=== PATIENT | female | born 1995 | race Caucasian/White ===

== ENCOUNTER 2021-01-09 17:33 | Emergency (ER) | payer MEDICAID, OTHER ==
--- OUTSIDE RECORDS SUMMARY | 2021-01-09 17:38 | XMS REPORT | Continuity of Care Document ---
:1995 Author Organization [facility] Address [address] [place] [address] [address]. [address] [place] [address] Care Team Providers Name Role Phone Unavailable Unavailable Unavailable Problems Condition Condition Condition Status Onset Resolution Last Treating Co mments Source Name Details Category Date Date Treatment Clinician Date Genital Genital Problem Active 0 [facility] herpes Herpes 9 da simplex Simplex 00:00: Medical 00 Group Benign Benign Problem Active 0 [place] essential Essential 9 da hypertensi Hypertensi 00:00: Me dical on on 00 Group complicati Complicati ng ng , , childbirth Childbirth and the and the puerperium Puer[place]ium Pre-eclamp Pre-eclamp Problem Active 2020-0 [facility] cass added cass Added 9- da to to 00:00: Medical pre-existi Pre-existi 00 Gr oup ng ng hypertensi Hypertensi on on History of History of Problem Active 2020-0 [facility] severe Severe 904 da pre-eclamp Pre-eclamp 00:00: Me dical cass cass 00 Group Allergies, Adverse Reactions, Alerts This patient has no known allergies or adverse reactions. Social History Smoking Status Start Date Stop Date Source Former Smoker [facility] Medications Ordered Filled Start Stop Current Ordering Indication Dosage Frequency Signature Comments Components Source Medication Medication Date Date Medication? Clinician (SIG) Name Name betamethaso betamethaso No 12mg betamethas [place] [place] acet,sod ne acet,sod one d a phos (PF) phos (PF) acet,sod M edical in water 6 in water 6 phos (PF) Group mg/mL mg/mL in water 6 injection injection mg/mL suspension suspension injection Take 12 mg Take 12 mg suspension by by Take 12 mg injection injection by route. route. injection route. clonidine clonidine No 1 BID clonidine [facility] HCl 0.1 mg HCl 0.1 mg HCl 0.1 mg da tablet Take tablet Take tablet Medical 1 tablet 1 tablet Take 1 Group twice a day twice a day tablet by oral by oral twice a route. route. day by oral route. iron iron No iron [facility] labetalol labetalol No 1 TID labetalol [facility] 200 mg 200 mg 200 mg da tablet Take tablet Take tablet Medical 1 tablet 3 1 tablet 3 Take 1 G roup times a day times a day tablet 3 by oral by oral times a route. route. day by oral route. nifedipine nifedipine No 1 Q1D nifedipine [facility] ER 90 mg ER 90 mg ER 90 mg da tablet,exte tablet,exte tablet,ext Medical nded nded ended Group release release release Take 1 Take 1 Take 1 tablet tablet tablet every day every day every day by oral by oral by oral route. route. route. Valtrex 500 Valtrex 500 No 1 Q1D Valtrex [facility] mg tablet mg tablet 500 mg da Take 1 Take 1 tablet Medical tablet tablet Take 1 Group every day every day tablet by oral by oral every day route. route. by oral route. Zoloft 100 Zoloft 100 No .5 Q1D Zoloft 100 [facility] mg tablet mg tablet mg tablet da Take 0.5 Take 0.5 Take 0.5 Med ical tablets tablets tablets Group every day every day every day by oral by oral by oral route. route. route. Vital Signs Vital Name Observation Time Observation Value Comments Source BP Diastolic 2020-05-04 00:00:00 84 mm[facility]Hg[facility] Height 2020-05-04 00:00:00 66 [in_i[facility] BMI (Body Mass 2020-05-04 00:00:00 38.1 kg/m2 [facility] senior director of strategy Medical Index) Group BP Systolic 2020-05-04 00:00:00 131 mm[Hg] [facility] Body Weight 2020-05-04 00:00:00 236.3 [lb_av] [facility] BP Diastolic 2020-04-20 00:00:00 115 mm[Hg] [facility] Height 2020-04-20 00:00:00 66 [in_i] [facility] BMI (Body Mass 2020-04-20 00:00:00 41.2 kg/m2 [facility] senior director of strategy Medical Index) Group BP Systolic 2020-04-20 00:00:00 164 mm[Hg] [facility] Body Weight 2020-04-20 00:00:00 255 [lb_av] [facility] BP Diastolic 2020-04-09 00:00:00 110 mm[Hg] [facility] Height 2020-04-09 00:00:00 66 [in_i] [facility] BMI (Body Mass 2020-04-09 00:00:00 40.5 kg/m2 [facility] senior director of strategy [facility] Index) Group BP Systolic 2020-04-09 00:00:00 140 mm[Hg] [facility] Body Weight 2020-04-09 00:00:00 251.1 [lb_av] [facility] BP Diastolic 2020-04-06 00:00:00 113 mm[Hg] [facility] Height 2020-04-06 00:00:00 66 [in_i] [facility] BMI (Body Mass 2020-04-06 00:00:00 39.7 kg/m2 [facility] senior director of [facility]) Group BP Systolic 2020-04-06 00:00:00 156 mm[Hg] [facility] Body Weight 2020-04-06 00:00:00 246.2 [lb_av] [facility] BP Diastolic 2020-03-30 00:00:00 90 mm[Hg] [facility] Height 2020-03-30 00:00:00 66 [in_i] [facility] BMI (Body Mass 2020-03-30 00:00:00 39.6 kg/m2 [facility] senior [facility] of [facility]) Group BP Systolic 2020-03-30 00:00:00 142 mm[Hg] [facility] Body Weight 2020-03-30 00:00:00 245.5 [lb_av] [facility] BP Diastolic 2020-03-26 00:00:00 117 mm[Hg] [facility] Height 2020-03-26 00:00:00 66 [in_i] [facility] BMI (Body Mass 2020-03-26 00:00:00 39.2 kg/m2 [facility]) [facility] BP Systolic 2020-03-26 00:00:00 148 mm[Hg] [facility] Body Weight 2020-03-26 00:00:00 243 [lb_av] [facility] Procedures Procedure Date / Time Performed Performing Clinician Sour e US(FBP)W/0 NON STRESS 2020-04-20 00:00:00 [facility] TEST [facility] non-stress test 2020-04-09 00:00:00 [facility] US(FBP)W/0 NON STRESS 2020-04-06 00:00:00 [facility] US(FBP)W/0 NON STRESS 2020-03-30 00:00:00 [facility] US, obstetric, limited 2020-03-26 00:00:00 [facility] US(FBP)W/0 NON STRESS 2020-03-26 00:00:00 [facility] TEST [facility] Plan of Care Planned Activity Planned Date Details Comments Source Diagnostic Test 2020-05-04 urinalysis, [facility] Pending 00:00:00 dipstick [code = Group urinalysis, dipstick] Encounters Start End Encounter Admission Attending Care Care Encounter Source Date/Time Date/Time Type Type Clinicians Facility Department ID 2020-05-04 2020-05-04 Anthony KHAN [place] - [id number] [facility] 00:00:00 00:00:00 Discovery rachel Montesinos MD: [address] [place] [phone] , Ph. [phone] 2020-04-20 2020-04-20 Anthony KHAN [place] - [id number] [facility] 00:00:00 00:00:00 [facility] rachel Montesinos MD: [address] [place] [phone] , Ph. [phone] 2020-04-09 2020-04-09 Anthony KHAN [place] - [id number] [facility] 00:00:00 00:00:00 [facility] rachel Montesinos MD: [address] [place] [phone] , Ph. [phone] 2020-04-06 2020-04-06 Anthony KHAN [place] - [id number] [facility] 00:00:00 00:00:00 [facility] rachel Montesinos MD: [address] [place] [phone] , Ph. [phone] 2020-03-30 2020-03-30 Anthony KHAN [place] - [id number] [facility] 00:00:00 00:00:00 [facility] rachel Montesinos MD: [address] [place] [phone] , Ph. [phone] 2020-03-26 2020-03-26 Anthony KHAN [place] - [id number] [facility] 00:00:00 00:00:00 [facility] rachel Montesinos MD: [address] [place] [phone] , Ph. [phone] Results Test Description Test Time Test Comments Results Result Comments Source CBC W Auto Differential panel - Blood 2020-04-21 12:00:00 Test Item Value Reference Range Interpretation Comme nts white blood count (test code = white blood count) 15.4 K/uL 4.0- 11.5 red blood count (test code = red blood count) 4.29 M/uL 3.80-5.2 0 hemoglobin (test code = hemoglobin) 12.0 g/dL 10.5-15.7 hematocrit (test code = hematocrit) 36.9 % 34.0-50.0 MCV [Entitic volume] (test code = 45905-7) 86.0 fL 86-100 mean corpuscular hemoglobin (test code = mean corpuscular 28.0 pg 26.2-33.4 hemoglobin) mean corpuscular HGB conc (test code = mean corpuscular HGB 32.5 g/ dL 30-34 conc) red cell distribution width (test code = red cell 13.2 % 12.0 -15.5 distribution width) platelet count (test code = platelet count) 248 K/uL 165-450 mean platelet volume (test code = mean platelet volume) 9.4 fL 9.4-12.6 Segmented neutrophils/100 leukocytes in Blood (test code = 75.2 % 44.4-80.1 79679-2) Immature granulocytes [#/volume] in Blood (test code = 0.1 K/uL 0.0-0.03 H 59508-8) lymphocyte% (test code = lymphocyte%) 15.8 % 10.0-50.0 mono % (test code = mono %) 7.6 % 3.6-12.0 eos % (test code = eos %) 0.7 % 0.0-5.4 Basophils/100 leukocytes in Unspecified specimen (test code 0.3 % 0.1-1.2 = 15923-5) Band form neutrophils [#/volume] in Blood (test code = 11.57 K/uL 1.56-6.13 H 05741-7) Lymphocytes [#/volume] in Unspecified specimen by Automated 2.4 K/u L 1.18-3.74 count (test code = 11270-9) mono # (test code = mono #) 1.17 K/uL 0.24-0.86 H eos # (test code = eos #) 0.10 K/uL 0.04-0.36 basophil # (test code = basophil #) 0.04 K/uL 0.01-0.08 NRBC% (test code = NRBC%) 0 /100 WBC 0-0.2 NRBC# (test code = NRBC#) 0 K/uL [facility] W Auto Differential panel - [id number] 03:25:00 Test Item Value Reference Range Interpretation Comments white blood count (test code = 11.4 K/uL 4.0-11.5 white blood count) red blood count (test code = red 3.95 M/uL 3.80-5.20 blood count) hemoglobin (test code = 11.1 g/dL 10.5-15.7 hemoglobin) hematocrit (test code = 33.8 % 34.0-50.0 L hematocrit) MCV [Entitic volume] (test code = 85.6 fL 86-100 L 99144-4) mean corpuscular hemoglobin (test 28.1 pg 26.2-33.4 code = mean corpuscular hemoglobin) mean corpuscular HGB conc (test 32.8 g/dL 30-34 code = mean corpuscular HGB conc) red cell distribution width (test 13.4 % 12.0-15.5 code = red cell distribution width) platelet count (test code = 227 K/uL 165-450 platelet count) mean platelet volume (test code = 9.4 fL 9.4-12.6 mean platelet volume) Segmented neutrophils/100 76.3 % 44.4-80.1 leukocytes in Blood (test code = 03173-2) Immature granulocytes [#/volume] 0.1 K/uL 0.0-0.03 H in Blood (test code = 08366-9) lymphocyte% (test code = 14.6 % 10.0-50.0 lymphocyte%) mono % (test code = mono %) 7.9 % 3.6-12.0 eos % (test code = eos %) 0.6 % 0.0-5.4 Basophils/100 leukocytes in 0.2 % 0.1-1.2 Unspecified specimen (test code = 62065-3) Band form neutrophils [#/volume] 8.72 K/uL 1.56-6.13 H in Blood (test code = 76985-6) Lymphocytes [#/volume] in 1.7 K/uL 1.18-3.74 Unspecified specimen by Automated count (test code = 47810-7) mono # (test code = mono #) 0.90 K/uL 0.24-0.86 H eos # (test code = eos #) 0.07 K/uL 0.04-0.36 basophil # (test code = basophil 0.02 K/uL 0.01-0.08 #) NRBC% (test code = NRBC%) 0 /100 WBC 0-0.2 NRBC# (test code = NRBC#) 0 K/uL [facility], method unspecified - [id number] 03:25:00NeutrophilsBandLymphocyteAtypical LymphMonocyteEosinophilBasophilPlatelet EstimatePlatelet MorphologyMatagorda Medical GroupBlood type and Indirect antibody screen panel - [id number] 11:42:00 Test Item Value Reference Range Interpretation Comments Rh [Type] in Blood (test code = 4+ 92290-1) ABO and Rh group panel - Blood A positive (test code = 81378-0) [facility] Ag [Presence] in Serum 2020-04-20 11:42:00 Test Item Value Reference Range Interpretation Comments .hepatitis B surface antigen (test negative negative code = .hepatitis B surface antigen) [facility] Ab [Presence] in Serum by [id number] 11:42:00 Test Item Value Reference Range Interpretation Comments Reagin Ab [Presence] in Serum by nonreactive nonreactive RPR (test code = 99014-3) [facility] with Ordered Manual Differential panel - Blood 2020-04-20 10:15:00 Test Item Value Reference Range Interpretation Comments white blood count (test code = 12.6 K/uL 4.0-11.5 H white blood count) red blood count (test code = red 4.27 M/uL 3.80-5.20 blood count) hemoglobin (test code = hemoglobin) 11.8 g/dL 10.5-15.7 hematocrit (test code = hematocrit) 35.9 % 34.0-50.0 MCV [Entitic volume] (test code = 84.1 fL 86-100 L 70520-3) mean corpuscular hemoglobin (test 27.6 pg 26.2-33.4 code = mean corpuscular hemoglobin) mean corpuscular HGB conc (test 32.9 g/dL 30-34 code = mean corpuscular HGB conc) red cell distribution width (test 13.2 % 12.0-15.5 code = red cell distribution width) platelet count (test code = 282 K/uL 165-450 platelet count) mean platelet volume (test code = 9.4 fL 9.4-12.6 mean platelet volume) Neutrophils [#/volume] in Blood by 70 37.0-80.0 Automated count (test code = 751-8) Band form neutrophils/100 0 0-3 leukocytes in Blood by Manual count (test code = 764-1) lymphocyte (test code = lymphocyte) 22 10-50 atypical lymph (test code = 2 H atypical lymph) Monocytes [#/volume] in Blood by 2 0-12 Manual count (test code = 743-5) eosinophil (test code = eosinophil) 3 0-7 Basophils/100 leukocytes in 0 0-3 Unspecified specimen by Manual count (test code = 57848-5) myelocyte (test code = myelocyte) 1 % H differential comment (test code = differential comment) Platelets [#/volume] in Blood by normal normal Automated count (test code = 777-3) Rouleaux [Presence] in Blood by slight H Light microscopy (test code = 7797-4) [facility] Hospital[facility]inal[facility] macro (dipstick) panel - [id number] 09:53:00 Test Item Value Reference Range Interpretation Comments Leukocytes (test code = Negative Leukocytes) Nitrite (test code = Nitrite) negative Urobilinogen (test code = .2 Urobilinogen) Protein (test code = Protein) 30 pH (test code = pH) 7.0 Blood (test code = Blood) Negative Specific [place] (test code = 1.020 Specific [place]) Ketone (test code = Ketone) Negative Bilirubin (test code = Negative Bilirubin) Glucose (test code = Glucose) Negative Appearance (test code = Slightly Cloudy Appearance) Color (test code = Color) Yellow [facility] macro (dipstick) panel - [id number] 09:53:00 Test Item Value Reference Range Interpretation Comments Leukocytes (test code = Negative Leukocytes) Nitrite (test code = Nitrite) negative Urobilinogen (test code = .2 Urobilinogen) Protein (test code = Protein) 30 pH (test code = pH) 7.0 Blood (test code = Blood) Negative Specific [place] (test code = 1.020 Specific [place]) Ketone (test code = Ketone) Negative Bilirubin (test code = Negative Bilirubin) Glucose (test code = Glucose) Negative Appearance (test code = Slightly Cloudy Appearance) Color (test code = Color) Yellow [facility] Biophysical profile panel [id number] 09:41:00 Test Item Value Reference Range Interpretation Comments Amniotic Fluid Index (test code = 2 (16.1) Amniotic Fluid Index) Tone (test code = Tone) 2 Breathing (test code = 2 Breathing) Movement (test code = 2 Movement) Non-Stress Test (test code = 0 Non-Stress Test) [facility] Biophysical profile panel [id number] 09:41:00 Test Item Value Reference Range Interpretation Comments Amniotic Fluid Index (test code = 2 (16.1) Amniotic Fluid Index) Tone (test code = Tone) 2 Breathing (test code = 2 Breathing) Movement (test code = 2 Movement) Non-Stress Test (test code = 0 Non-Stress Test) [facility] [id number] 09:12:00Differential comment-P [facility] HospitalComprehensive metabolic 2000 panel - Serum or Plasma 2020-04-20 09:12:00 Test Item Value Reference Range Interpretation Comments Glucose [Mass/volume] in Serum or 133 mg/dL 74-106 H Plasma (test code = 2345-7) Urea nitrogen [Mass/volume] in 10 mg/dL 6-20 Serum or Plasma (test code = 3094-0) osmolality calculated,serum (test 271 mOsm/kg 280-300 L code = osmolality calculated,serum) creatinine (test code = 0.6 mg/dL 0.50-0.90 creatinine) glomerular filtration rate (test >60.00 code = glomerular filtration rate) Urea nitrogen/Creatinine [Mass 16.7 12-20 Ratio] in Serum or Plasma (test code = 3097-3) sodium level (test code = sodium 135 mmol/L 135-145 level) potassium level (test code = 3.6 mmol/L 3.5-5.2 potassium level) chloride level (test code = 103 mmol/L 98-108 chloride level) CO2 (test code = CO2) 20 mmol/L 21-32 L anion gap (test code = anion gap) 15.6 mEq/L 12-20 calcium level (test code = 8.9 mg/dL 8.6-10.0 calcium level) total protein (test code = total 6.4 g/dL 6.6-8.7 L protein) albumin (test code = albumin) 3.2 g/dL 3.5-5.2 L globulin (test code = globulin) 3.2 gm/dL A/G ratio (test code = A/G ratio) 1.0 >1.0 bilirubin,total (test code = <0.3 0.0-1.2 bilirubin,total) AST/SGOT (test code = AST/SGOT) 12 U/L 15-32 L Alanine aminotransferase 14 U/L 0-33 [Enzymatic activity/volume] in Serum or Plasma (test code = 1742-6) Alkaline phosphatase [Enzymatic 99 U/L 35-105 activity/volume] in Serum or Plasma (test code = 6768-6) [facility] GroupUrate [Mass/volume] in [id number] 09:12:00 Test Item Value Reference Range Interpretation Comments uric acid (test code = uric acid) 4.9 mg/dL 2.4-5.7 [facility] HospitalD-Lactate [Moles/volume] in Serum or [id number] 09:12:00 Test Item Value Reference Range Interpretation Comments LDH (test code = LDH) 155 U/L 135-214 [facility] HospitalUrinalysis complete panel - [id number] 10:05:00 Test Item Value Reference Range Interpretation Comments Color of Urine by Auto (test code yellow = 97481-5) Appearance of Urine (test code = clear clear 5767-9) Glucose [Mass/volume] in Urine negative negative (test code = 2350-7) bilirubin, urine (test code = negative negative bilirubin, urine) ketone, urine (test code = trace negative H ketone, urine) Specific gravity of Urine by 1.025 1.003-1.030 Automated test strip (test code = 85969-0) Hemoglobin [Presence] in Urine by negative negative Test strip (test code = 5794-3) pH of Urine (test code = 2756-5) 6.500 5-9 protein urine (UA) (test code = =2+ (100 negative H protein urine (UA)) Urobilinogen [Presence] in Urine 1.0 E.U./dL 0.2-1.0 (test code = 66766-8) Nitrite [Presence] in Urine by negative negative Test strip (test code = 5802-4) urine leukocyte esterase (test trace negative H code = urine leukocyte esterase) Erythrocytes [Presence] in Urine =0-3 0-5 (test code = 95762-4) WBC, urine (test code = WBC, =0-2 0-5 urine) Epithelial cells [Presence] in =11-25 0-5 H Urine sediment by Light microscopy (test code = 01038-4) bacteria, urine (test code = small (1 none detect H bacteria, urine) urine culture added? (test code = yes urine culture added?) [facility] complete panel - [id number] 10:05:00 Test Item Value Reference Range Interpretation Comments Color of Urine by Auto (test code yellow = 62704-1) Appearance of Urine (test code = clear clear 5767-9) Glucose [Mass/volume] in Urine negative negative (test code = 2350-7) bilirubin, urine (test code = negative negative bilirubin, urine) ketone, urine (test code = trace negative H ketone, urine) Specific gravity of Urine by 1.025 1.003-1.030 Automated test strip (test code = 12226-0) Hemoglobin [Presence] in Urine by negative negative Test strip (test code = 5794-3) pH of Urine (test code = 2756-5) 6.500 5-9 protein urine (UA) (test code = =2+ (100 negative H protein urine (UA)) Urobilinogen [Presence] in Urine 1.0 E.U./dL 0.2-1.0 (test code = 24865-4) Nitrite [Presence] in Urine by negative negative Test strip (test code = 5802-4) urine leukocyte esterase (test trace negative H code = urine leukocyte esterase) Erythrocytes [Presence] in Urine =0-3 0-5 (test code = 41055-0) WBC, urine (test code = WBC, =0-2 0-5 urine) Epithelial cells [Presence] in =11-25 0-5 H Urine sediment by Light microscopy (test code = 08605-6) bacteria, urine (test code = small (1 none detect H bacteria, urine) urine culture added? (test code = yes urine culture added?) [facility] HospitalBacteria identified in Urine by [id number] 10:05:00Bacteria Ur [facility] in 24 hour Urine and Serum or [id number] 07:55:00 Test Item Value Reference Range Interpretation Comments creatinine (test code = 0.6 mg/dL 0.50-0.90 creatinine) urine collection time (test 24 hours code = urine collection time) Volume of Urine (test code = 2750 mL/24 [place] 04295-6) creatinine, urine random (test 34.9 mg/dL 217 code = creatinine, urine random) Creatinine renal clearance in 111.1 mL/min 88-128 Urine and Serum or Plasma collected for unspecified duration (test code = 65333-9) [facility] [Mass/time] in 24 hour [id number] 07:55:00 Test Item Value Reference Range Interpretation Comments urine total protein (test code = 10.7 mg/dL urine total protein) total protein 24 hour urine 294.2 mg/day <149.1 (test code = total protein 24 hour urine) [facility] renal clearance in 24 hour Urine and Serum or [id number] 07:55:00 Test Item Value Reference Range Interpretation Comments creatinine (test code = 0.6 mg/dL 0.50-0.90 creatinine) urine collection time (test 24 hours code = urine collection time) Volume of Urine (test code = 2750 mL/24 [place] 37028-3) creatinine, urine random (test 34.9 mg/dL 217 code = creatinine, urine random) Creatinine renal clearance in 111.1 mL/min 88-128 Urine and Serum or Plasma collected for unspecified duration (test code = 36022-1) [facility] [Mass/time] in 24 hour [id number] 07:55:00 Test Item Value Reference Range Interpretation Comments urine total protein (test code = 10.7 mg/dL urine total protein) total protein 24 hour urine 294.2 mg/day <149.1 (test code = total protein 24 hour urine) [facility] W Auto Differential panel - [id number] 08:08:00 Test Item Value Reference Range Interpretation Comments white blood count (test code = 10.4 K/uL 4.0-11.5 white blood count) red blood count (test code = red 4.23 M/uL 3.80-5.20 blood count) hemoglobin (test code = 11.8 g/dL 10.5-15.7 hemoglobin) hematocrit (test code = 35.6 % 34.0-50.0 hematocrit) MCV [Entitic volume] (test code = 84.2 fL 86-100 L 73747-9) mean corpuscular hemoglobin (test 27.9 pg 26.2-33.4 code = mean corpuscular hemoglobin) mean corpuscular HGB conc (test 33.1 g/dL 30-34 code = mean corpuscular HGB conc) red cell distribution width (test 12.6 % 12.0-15.5 code = red cell distribution width) platelet count (test code = 258 K/uL 165-450 platelet count) mean platelet volume (test code = 9.8 fL 9.4-12.6 mean platelet volume) Segmented neutrophils/100 72.1 % 44.4-80.1 leukocytes in Blood (test code = 74983-6) Immature granulocytes [#/volume] 0.1 K/uL 0.0-0.03 H in Blood (test code = 05588-5) lymphocyte% (test code = 20.1 % 10.0-50.0 lymphocyte%) mono % (test code = mono %) 5.8 % 3.6-12.0 eos % (test code = eos %) 1.0 % 0.0-5.4 Basophils/100 leukocytes in 0.3 % 0.1-1.2 Unspecified specimen (test code = 19638-6) Band form neutrophils [#/volume] 7.51 K/uL 1.56-6.13 H in Blood (test code = 65772-2) Lymphocytes [#/volume] in 2.1 K/uL 1.18-3.74 Unspecified specimen by Automated count (test code = 50539-1) mono # (test code = mono #) 0.60 K/uL 0.24-0.86 eos # (test code = eos #) 0.10 K/uL 0.04-0.36 basophil # (test code = basophil 0.03 K/uL 0.01-0.08 #) NRBC% (test code = NRBC%) 0 /100 WBC 0-0.2 NRBC# (test code = NRBC#) 0 K/uL [facility] GroupUrinalysis complete panel - [id number] 08:08:00 Test Item Value Reference Range Interpretation Comments Color of Urine by Auto (test light yellow code = 46090-5) Appearance of Urine (test code = clear clear 5767-9) Glucose [Presence] in Urine by negative negative Automated test strip (test code = 14857-4) Bilirubin.total [Mass/volume] in negative negative Urine (test code = 1978-6) Ketones [Mass/volume] in Urine negative negative by Automated test strip (test code = 42357-9) Specific gravity of Urine by 1.018 1.003-1.030 Automated test strip (test code = 35172-6) blood urine (test code = blood negative negative urine) pH of Urine (test code = 2756-5) 7.000 5-9 protein urine (UA) (test code = =1+ (50 negative H protein urine (UA)) Urobilinogen [Presence] in Urine normal 0.2-1.0 (test code = 22810-8) Nitrite [Presence] in Urine by negative negative Test strip (test code = 5802-4) Leukocyte esterase [Presence] in negative negative Urine by Automated test strip (test code = 36261-2) Erythrocytes [#/volume] in Urine =6-10 0-5 H by Automated count (test code = 798-9) Leukocytes [#/area] in Urine =6-10 0-5 H sediment by Automated count (test code = 51676-4) Epithelial cells [Presence] in =6-10 0-5 Urine sediment by Light microscopy (test code = 16427-7) Bacteria identified in Urine by trace none detect Culture (test code = 630-4) Casts [#/area] in Urine sediment =2-5 none detect by Automated count (test code = 18383-4) urine culture added? (test code no = urine culture added?) [facility] - [facility] or Plasma 2020-04-10 08:08:00 Test Item Value Reference Range Interpretation Comments Glucose [Mass/volume] in Serum or 94 mg/dL 74-106 Plasma (test code = 2345-7) Urea nitrogen [Mass/volume] in 10 mg/dL 6-20 Serum or Plasma (test code = 3094-0) osmolality calculated,serum (test 271 mOsm/kg 280-300 L code = osmolality calculated,serum) creatinine (test code = 0.6 mg/dL 0.50-0.90 creatinine) glomerular filtration rate (test >60.00 code = glomerular filtration rate) Urea nitrogen/Creatinine [Mass 16.7 12-20 Ratio] in Serum or Plasma (test code = 3097-3) sodium level (test code = sodium 136 mmol/L 135-145 level) potassium level (test code = 3.6 mmol/L 3.5-5.2 potassium level) chloride level (test code = 104 mmol/L 98-108 chloride level) CO2 (test code = CO2) 20 mmol/L 21-32 L anion gap (test code = anion gap) 15.6 mEq/L 12-20 calcium level (test code = 9.0 mg/dL 8.6-10.0 calcium level) total protein (test code = total 6.4 g/dL 6.6-8.7 L protein) albumin (test code = albumin) 3.2 g/dL 3.5-5.2 L globulin (test code = globulin) 3.2 gm/dL A/G ratio (test code = A/G ratio) 1.0 >1.0 bilirubin,total (test code = <0.3 0.0-1.2 bilirubin,total) AST/SGOT (test code = AST/SGOT) 12 U/L 15-32 L Alanine aminotransferase 17 U/L 0-33 [Enzymatic activity/volume] in Serum or Plasma (test code = 1742-6) Alkaline phosphatase [Enzymatic 92 U/L 35-105 activity/volume] in Serum or Plasma (test code = 6768-6) [facility]] in Serum or [id number] 08:08:00 Test Item Value Reference Range Interpretation Comments uric acid (test code = uric acid) 4.5 mg/dL 2.4-5.7 [facility]-Lactate [Moles/volume] in Serum or [id number] 08:08:00 Test Item Value Reference Range Interpretation Comments LDH (test code = LDH) 138 U/L 135-214 [facility] W Auto Differential panel - [id number] 08:08:00 Test Item Value Reference Range Interpretation Comments white blood count (test code = 10.4 K/uL 4.0-11.5 white blood count) red blood count (test code = red 4.23 M/uL 3.80-5.20 blood count) hemoglobin (test code = 11.8 g/dL 10.5-15.7 hemoglobin) hematocrit (test code = 35.6 % 34.0-50.0 hematocrit) MCV [Entitic volume] (test code = 84.2 fL 86-100 L 98491-0) mean corpuscular hemoglobin (test 27.9 pg 26.2-33.4 code = mean corpuscular hemoglobin) mean corpuscular HGB conc (test 33.1 g/dL 30-34 code = mean corpuscular HGB conc) red cell distribution width (test 12.6 % 12.0-15.5 code = red cell distribution width) platelet count (test code = 258 K/uL 165-450 platelet count) mean platelet volume (test code = 9.8 fL 9.4-12.6 mean platelet volume) Segmented neutrophils/100 72.1 % 44.4-80.1 leukocytes in Blood (test code = 64376-1) Immature granulocytes [#/volume] 0.1 K/uL 0.0-0.03 H in Blood (test code = 14047-9) lymphocyte% (test code = 20.1 % 10.0-50.0 lymphocyte%) mono % (test code = mono %) 5.8 % 3.6-12.0 eos % (test code = eos %) 1.0 % 0.0-5.4 Basophils/100 leukocytes in 0.3 % 0.1-1.2 Unspecified specimen (test code = 51642-7) Band form neutrophils [#/volume] 7.51 K/uL 1.56-6.13 H in Blood (test code = 35320-6) Lymphocytes [#/volume] in 2.1 K/uL 1.18-3.74 Unspecified specimen by Automated count (test code = 11486-5) mono # (test code = mono #) 0.60 K/uL 0.24-0.86 eos # (test code = eos #) 0.10 K/uL 0.04-0.36 basophil # (test code = basophil 0.03 K/uL 0.01-0.08 #) NRBC% (test code = NRBC%) 0 /100 WBC 0-0.2 NRBC# (test code = NRBC#) 0 K/uL [facility] Group[facility] complete panel - [id number] 08:08:00 Test Item Value Reference Range Interpretation Comments Color of Urine by Auto (test light yellow code = 74556-9) Appearance of Urine (test code = clear clear 5767-9) Glucose [Presence] in Urine by negative negative Automated test strip (test code = 22768-1) Bilirubin.total [Mass/volume] in negative negative Urine (test code = 1978-6) Ketones [Mass/volume] in Urine negative negative by Automated test strip (test code = 40020-8) Specific gravity of Urine by 1.018 1.003-1.030 Automated test strip (test code = 36356-5) blood urine (test code = blood negative negative urine) pH of Urine (test code = 2756-5) 7.000 5-9 protein urine (UA) (test code = =1+ (50 negative H protein urine (UA)) Urobilinogen [Presence] in Urine normal 0.2-1.0 (test code = 28277-5) Nitrite [Presence] in Urine by negative negative Test strip (test code = 5802-4) Leukocyte esterase [Presence] in negative negative Urine by Automated test strip (test code = 80223-8) Erythrocytes [#/volume] in Urine =6-10 0-5 H by Automated count (test code = 798-9) Leukocytes [#/area] in Urine =6-10 0-5 H sediment by Automated count (test code = 81753-9) Epithelial cells [Presence] in =6-10 0-5 Urine sediment by Light microscopy (test code = 39118-0) Bacteria identified in Urine by trace none detect Culture (test code = 630-4) Casts [#/area] in Urine sediment =2-5 none detect by Automated count (test code = 84426-3) urine culture added? (test code no = urine culture added?) [facility] - Serum or Plasma 2020-04-10 08:08:00 Test Item Value Reference Range Interpretation Comments Glucose [Mass/volume] in Serum or 94 mg/dL 74-106 Plasma (test code = 2345-7) Urea nitrogen [Mass/volume] in 10 mg/dL 6-20 Serum or Plasma (test code = 3094-0) osmolality calculated,serum (test 271 mOsm/kg 280-300 L code = osmolality calculated,serum) creatinine (test code = 0.6 mg/dL 0.50-0.90 creatinine) glomerular filtration rate (test >60.00 code = glomerular filtration rate) Urea nitrogen/Creatinine [Mass 16.7 12-20 Ratio] in Serum or Plasma (test code = 3097-3) sodium level (test code = sodium 136 mmol/L 135-145 level) potassium level (test code = 3.6 mmol/L 3.5-5.2 potassium level) chloride level (test code = 104 mmol/L 98-108 chloride level) CO2 (test code = CO2) 20 mmol/L 21-32 L anion gap (test code = anion gap) 15.6 mEq/L 12-20 calcium level (test code = 9.0 mg/dL 8.6-10.0 calcium level) total protein (test code = total 6.4 g/dL 6.6-8.7 L protein) albumin (test code = albumin) 3.2 g/dL 3.5-5.2 L globulin (test code = globulin) 3.2 gm/dL A/G ratio (test code = A/G ratio) 1.0 >1.0 bilirubin,total (test code = <0.3 0.0-1.2 bilirubin,total) AST/SGOT (test code = AST/SGOT) 12 U/L 15-32 L Alanine aminotransferase 17 U/L 0-33 [Enzymatic activity/volume] in Serum or Plasma (test code = 1742-6) Alkaline phosphatase [Enzymatic 92 U/L 35-105 activity/volume] in Serum or Plasma (test code = 6768-6) [facility] [Mass/volume] in Serum or [id number] 08:08:00 Test Item Value Reference Range Interpretation Comments uric acid (test code = uric acid) 4.5 mg/dL 2.4-5.7 [facility] [Moles/volume] in Serum or [id number] 08:08:00 Test Item Value Reference Range Interpretation Comments LDH (test code = LDH) 138 U/L 135-214 [facility]/rectal, streptococcus group [id number] 00:00:00 Test Item Value Reference Range Interpretation Comments group B strep (test code = group B normal strep) [facility]/rectal, streptococcus group [id number] 00:00:00 Test Item Value Reference Range Interpretation Comments group B strep (test code = group B normal strep) [facility] [id number] 09:57:00 Test Item Value Reference Range Interpretation Comments Reactive (test code = Reactive) Yes Contractions (test code = Contractions) No [facility] [id number] 09:57:00 Test Item Value Reference Range Interpretation Comments Reactive (test code = Reactive) Yes Contractions (test code = Contractions) No [facility] HospitalUrinalysis macro (dipstick) panel - [id number] 08:52:18 Test Item Value Reference Range Interpretation Comments Leukocytes (test code = Trace Leukocytes) Nitrite (test code = Nitrite) negative Urobilinogen (test code = .2 Urobilinogen) Protein (test code = Protein) 100 pH (test code = pH) 7.0 Blood (test code = Blood) Negative Specific [place] (test code = 1.020 Specific [place]) Ketone (test code = Ketone) Negative Bilirubin (test code = Bilirubin) Negative Glucose (test code = Glucose) Negative Appearance (test code = Clear Appearance) Color (test code = Color) Dark Yellow [facility] GroupUrinalysis macro (dipstick) panel - [id number] 08:52:18 Test Item Value Reference Range Interpretation Comments Leukocytes (test code = Trace Leukocytes) Nitrite (test code = Nitrite) negative Urobilinogen (test code = .2 Urobilinogen) Protein (test code = Protein) 100 pH (test code = pH) 7.0 Blood (test code = Blood) Negative Specific [place] (test code = 1.020 Specific [place]) Ketone (test code = Ketone) Negative Bilirubin (test code = Bilirubin) Negative Glucose (test code = Glucose) Negative Appearance (test code = Clear Appearance) Color (test code = Color) Dark Yellow [facility] Group[facility] macro (dipstick) panel - [id number] 08:52:18 Test Item Value Reference Range Interpretation Comments Leukocytes (test code = Trace Leukocytes) Nitrite (test code = Nitrite) negative Urobilinogen (test code = .2 Urobilinogen) Protein (test code = Protein) 100 pH (test code = pH) 7.0 Blood (test code = Blood) Negative Specific [place] (test code = 1.020 Specific [place]) Ketone (test code = Ketone) Negative Bilirubin (test code = Bilirubin) Negative Glucose (test code = Glucose) Negative Appearance (test code = Clear Appearance) Color (test code = Color) Dark Yellow [facility] (dipstick) panel - [id number] 08:58:01 Test Item Value Reference Range Interpretation Comments Leukocytes (test code = Leukocytes) Negative Nitrite (test code = Nitrite) negative Urobilinogen (test code = .2 Urobilinogen) Protein (test code = Protein) Negative pH (test code = pH) 7.0 Blood (test code = Blood) Negative Specific [place] (test code = 1.020 Specific [place]) Ketone (test code = Ketone) Negative Bilirubin (test code = Bilirubin) Negative Glucose (test code = Glucose) Negative Appearance (test code = Appearance) Clear Color (test code = Color) Yellow [facility] (dipstick) panel - [id number] 08:58:01 Test Item Value Reference Range Interpretation Comments Leukocytes (test code = Leukocytes) Negative Nitrite (test code = Nitrite) negative Urobilinogen (test code = .2 Urobilinogen) Protein (test code = Protein) Negative pH (test code = pH) 7.0 Blood (test code = Blood) Negative Specific [place] (test code = 1.020 Specific [place]) Ketone (test code = Ketone) Negative Bilirubin (test code = Bilirubin) Negative Glucose (test code = Glucose) Negative Appearance (test code = Appearance) Clear Color (test code = Color) Yellow [facility] (dipstick) panel - [id number] 08:58:01 Test Item Value Reference Range Interpretation Comments Leukocytes (test code = Leukocytes) Negative Nitrite (test code = Nitrite) negative Urobilinogen (test code = .2 Urobilinogen) Protein (test code = Protein) Negative pH (test code = pH) 7.0 Blood (test code = Blood) Negative Specific [place] (test code = 1.020 Specific [place]) Ketone (test code = Ketone) Negative Bilirubin (test code = Bilirubin) Negative Glucose (test code = Glucose) Negative Appearance (test code = Appearance) Clear Color (test code = Color) Yellow [facility] (dipstick) panel - [id number] 08:58:01 Test Item Value Reference Range Interpretation Comments Leukocytes (test code = Leukocytes) Negative Nitrite (test code = Nitrite) negative Urobilinogen (test code = .2 Urobilinogen) Protein (test code = Protein) Negative pH (test code = pH) 7.0 Blood (test code = Blood) Negative Specific [place] (test code = 1.020 Specific [place]) Ketone (test code = Ketone) Negative Bilirubin (test code = Bilirubin) Negative Glucose (test code = Glucose) Negative Appearance (test code = Appearance) Clear Color (test code = Color) Yellow [facility] Biophysical profile panel [id number] 08:45:37 Test Item Value Reference Range Interpretation Comments Amniotic Fluid Index (test code = 2 (17.5) Amniotic Fluid Index) Tone (test code = Tone) 2 Breathing (test code = 2 Breathing) Movement (test code = 2 Movement) Non-Stress Test (test code = 2 Non-Stress Test) [facility] Biophysical profile panel [id number] 08:45:37 Test Item Value Reference Range Interpretation Comments Amniotic Fluid Index (test code = 2 (17.5) Amniotic Fluid Index) Tone (test code = Tone) 2 Breathing (test code = 2 Breathing) Movement (test code = 2 Movement) Non-Stress Test (test code = 2 Non-Stress Test) [facility] Biophysical profile panel [id number] 08:45:37 Test Item Value Reference Range Interpretation Comments Amniotic Fluid Index (test code = 2 (17.5) Amniotic Fluid Index) Tone (test code = Tone) 2 Breathing (test code = 2 Breathing) Movement (test code = 2 Movement) Non-Stress Test (test code = 2 Non-Stress Test) [facility] Biophysical profile panel [id number] 08:45:37 Test Item Value Reference Range Interpretation Comments Amniotic Fluid Index (test code = 2 (17.5) Amniotic Fluid Index) Tone (test code = Tone) 2 Breathing (test code = 2 Breathing) Movement (test code = 2 Movement) Non-Stress Test (test code = 2 Non-Stress Test) [facility] (dipstick) panel - [id number] 09:18:53 Test Item Value Reference Range Interpretation Comments Leukocytes (test code = Leukocytes) Negative Nitrite (test code = Nitrite) negative Urobilinogen (test code = .2 Urobilinogen) Protein (test code = Protein) Negative pH (test code = pH) 7.0 Blood (test code = Blood) Negative Specific [place] (test code = 1.020 Specific [place]) Ketone (test code = Ketone) Negative Bilirubin (test code = Bilirubin) Negative Glucose (test code = Glucose) Negative Appearance (test code = Appearance) Clear Color (test code = Color) Yellow [facility] (dipstick) panel - [id number] 09:18:53 Test Item Value Reference Range Interpretation Comments Leukocytes (test code = Leukocytes) Negative Nitrite (test code = Nitrite) negative Urobilinogen (test code = .2 Urobilinogen) Protein (test code = Protein) Negative pH (test code = pH) 7.0 Blood (test code = Blood) Negative Specific [place] (test code = 1.020 Specific [place]) Ketone (test code = Ketone) Negative Bilirubin (test code = Bilirubin) Negative Glucose (test code = Glucose) Negative Appearance (test code = Appearance) Clear Color (test code = Color) Yellow [facility] (dipstick) panel - [id number] 09:18:53 Test Item Value Reference Range Interpretation Comments Leukocytes (test code = Leukocytes) Negative Nitrite (test code = Nitrite) negative Urobilinogen (test code = .2 Urobilinogen) Protein (test code = Protein) Negative pH (test code = pH) 7.0 Blood (test code = Blood) Negative Specific [place] (test code = 1.020 Specific [place]) Ketone (test code = Ketone) Negative Bilirubin (test code = Bilirubin) Negative Glucose (test code = Glucose) Negative Appearance (test code = Appearance) Clear Color (test code = Color) Yellow [facility] (dipstick) panel - [id number] 09:18:53 Test Item Value Reference Range Interpretation Comments Leukocytes (test code = Leukocytes) Negative Nitrite (test code = Nitrite) negative Urobilinogen (test code = .2 Urobilinogen) Protein (test code = Protein) Negative pH (test code = pH) 7.0 Blood (test code = Blood) Negative Specific [place] (test code = 1.020 Specific [place]) Ketone (test code = Ketone) Negative Bilirubin (test code = Bilirubin) Negative Glucose (test code = Glucose) Negative Appearance (test code = Appearance) Clear Color (test code = Color) Yellow [facility] Biophysical profile panel [id number] 09:08:40 Test Item Value Reference Range Interpretation Comments Amniotic Fluid Index (test code = 2 (18.0) Amniotic Fluid Index) Tone (test code = Tone) 2 Breathing (test code = 2 Breathing) Movement (test code = 2 Movement) Non-Stress Test (test code = 2 Non-Stress Test) [facility] Biophysical profile panel [id number] 09:08:40 Test Item Value Reference Range Interpretation Comments Amniotic Fluid Index (test code = 2 (18.0) Amniotic Fluid Index) Tone (test code = Tone) 2 Breathing (test code = 2 Breathing) Movement (test code = 2 Movement) Non-Stress Test (test code = 2 Non-Stress Test) [facility] Biophysical profile panel [id number] 09:08:40 Test Item Value Reference Range Interpretation Comments Amniotic Fluid Index (test code = 2 (18.0) Amniotic Fluid Index) Tone (test code = Tone) 2 Breathing (test code = 2 Breathing) Movement (test code = 2 Movement) Non-Stress Test (test code = 2 Non-Stress Test) [facility] Biophysical profile panel [id number] 09:08:40 Test Item Value Reference Range Interpretation Comments Amniotic Fluid Index (test code = 2 (18.0) Amniotic Fluid Index) Tone (test code = Tone) 2 Breathing (test code = 2 Breathing) Movement (test code = 2 Movement) Non-Stress Test (test code = 2 Non-Stress Test) [facility]Creat[facility] clearance in 24 hour Urine and Serum or [id number] 09:43:00 Test Item Value Reference Range Interpretation Comments creatinine (test code = 0.7 mg/dL 0.50-0.90 creatinine) urine collection time (test code 24 hours = urine collection time) Volume of Urine (test code = 800 mL/24 [place] [address]-9) creatinine, urine random (test 90.5 mg/dL 28-217 code = creatinine, urine random) Creatinine renal clearance in 71.8 mL/min 88-128 L Urine and Serum or Plasma collected for unspecified duration (test code = 87424-3) [facility]Protein [Mass/time] in 24 hour [id number] 09:43:00 Test Item Value Reference Range Interpretation Comments urine total protein (test code = 19.4 mg/dL urine total protein) total protein 24 hour urine 155.2 mg/day <149.1 (test code = total protein 24 hour urine) [facility] GroupCreatinine renal clearance in 24 hour Urine and Serum or [id number] 09:43:00 Test Item Value Reference Range Interpretation Comments creatinine (test code = 0.7 mg/dL 0.50-0.90 creatinine) urine collection time (test code 24 hours = urine collection time) Volume of Urine (test code = 800 mL/24 [place] [address]-8) creatinine, urine random (test 90.5 mg/dL 28-217 code = creatinine, urine random) Creatinine renal clearance in 71.8 mL/min 88-128 L Urine and Serum or Plasma collected for unspecified duration (test code = 05728-5) [facility]Protein [Mass/time] in 24 hour [id number] 09:43:00 Test Item Value Reference Range Interpretation Comments urine total protein (test code = 19.4 mg/dL urine total protein) total protein 24 hour urine 155.2 mg/day <149.1 (test code = total protein 24 hour urine) [facility]Protein [Mass/time] in 24 hour [id number] 09:43:00 Test Item Value Reference Range Interpretation Comments urine total protein (test code = 19.4 mg/dL urine total protein) total protein 24 hour urine 155.2 mg/day <149.1 (test code = total protein 24 hour urine) [facility] GroupCreatinine renal clearance in 24 hour Urine and Serum or [id number] 09:43:00 Test Item Value Reference Range Interpretation Comments creatinine (test code = 0.7 mg/dL 0.50-0.90 creatinine) urine collection time (test code 24 hours = urine collection time) Volume of Urine (test code = 800 mL/24 [place] [address]-2) creatinine, urine random (test 90.5 mg/dL 28217 code = creatinine, urine random) Creatinine renal clearance in 71.8 mL/min 88-128 L Urine and Serum or Plasma collected for unspecified duration (test code = 02154-2) [facility]Protein [Mass/time] in 24 hour [id number] 09:43:00 Test Item Value Reference Range Interpretation Comments urine total protein (test code = 19.4 mg/dL urine total protein) total protein 24 hour urine 155.2 mg/day <149.1 (test code = total protein 24 hour urine) [facility]HIV 1+2 Ab [Presence] in [id number] 08:18:00HIV P24 AgHIV-1/2 [facility]Reagin Ab [Presence] in Serum by RPR 2020-03-27 08:18:00 Test Item Value Reference Range Interpretation Comments Reagin Ab [Presence] in Serum by nonreactive nonreactive RPR (test code = 48300-9) [facility] HospitalRubella virus IgM Ab [Units/volume] in [id number] 08:18:00 Test Item Value Reference Range Interpretation Comments Rubella virus IgM Ab [Units/volume] in <20.0 0.0-19.9 Serum (test code = 8015-0) [facility] HospitalHepatitis B virus surface Ag [Presence] in Serum 2020-03-27 08:18:00 Test Item Value Reference Range Interpretation Comments .hepatitis B surface antigen (test negative negative code = .hepatitis B surface antigen) [facility]Com[facility] 2000 panel - Serum or Plasma 2020-03-27 08:18:00 Test Item Value Reference Range Interpretation Comments Glucose [Mass/volume] in Serum or 124 mg/dL 74-106 H Plasma (test code = 2345-7) Urea nitrogen [Mass/volume] in 10 mg/dL 6-20 Serum or Plasma (test code = 3094-0) osmolality calculated,serum (test 271 mOsm/kg 280-300 L code = osmolality calculated,serum) creatinine (test code = 0.7 mg/dL 0.50-0.90 creatinine) glomerular filtration rate (test >60.00 code = glomerular filtration rate) Urea nitrogen/Creatinine [Mass 14.3 12-20 Ratio] in Serum or Plasma (test code = 3097-3) sodium level (test code = sodium 135 mmol/L 135-145 level) potassium level (test code = 3.3 mmol/L 3.5-5.2 L potassium level) chloride level (test code = 104 mmol/L 98-108 chloride level) CO2 (test code = CO2) 18 mmol/L 21-32 L anion gap (test code = anion gap) 16.3 mEq/L 12-20 calcium level (test code = 8.9 mg/dL 8.6-10.0 calcium level) total protein (test code = total 6.6 g/dL 6.6-8.7 protein) albumin (test code = albumin) 3.3 g/dL 3.5-5.2 L globulin (test code = globulin) 3.3 gm/dL A/G ratio (test code = A/G ratio) 1.0 >1.0 bilirubin,total (test code = <0.3 0.0-1.2 bilirubin,total) AST/SGOT (test code = AST/SGOT) 12 U/L 15-32 L Alanine aminotransferase 13 U/L 0-33 [Enzymatic activity/volume] in Serum or Plasma (test code = 1742-6) Alkaline phosphatase [Enzymatic 91 U/L 35-105 activity/volume] in Serum or Plasma (test code = 6768-6) [facility] HospitalUrate [Mass/volume] in [id number] 08:18:00 Test Item Value Reference Range Interpretation Comments uric acid (test code = uric acid) 4.4 mg/dL 2.4-5.7 [facility]D-Lactate [Moles/volume] in Serum or [id number] 08:18:00 Test Item Value Reference Range Interpretation Comments LDH (test code = LDH) 148 U/L 135-214 [facility] W Auto Differential panel - [id number] 08:18:00 Test Item Value Reference Range Interpretation Comments white blood count (test code = 12.9 K/uL 4.0-11.5 H white blood count) red blood count (test code = red 4.10 M/uL 3.80-5.20 blood count) hemoglobin (test code = 11.6 g/dL 10.5-15.7 hemoglobin) hematocrit (test code = 35.1 % 34.0-50.0 hematocrit) MCV [Entitic volume] (test code = 85.6 fL 86-100 L 64016-4) mean corpuscular hemoglobin (test 28.3 pg 26.2-33.4 code = mean corpuscular hemoglobin) mean corpuscular HGB conc (test 33.0 g/dL 30-34 code = mean corpuscular HGB conc) red cell distribution width (test 12.3 % 12.0-15.5 code = red cell distribution width) platelet count (test code = 272 K/uL 165-450 platelet count) mean platelet volume (test code = 9.3 fL 9.4-12.6 L mean platelet volume) Segmented neutrophils/100 73.6 % 44.4-80.1 leukocytes in Blood (test code = 61663-7) Immature granulocytes [#/volume] 0.1 K/uL 0.0-0.03 H in Blood (test code = 98571-3) lymphocyte% (test code = 18.0 % 10.0-50.0 lymphocyte%) mono % (test code = mono %) 7.0 % 3.6-12.0 eos % (test code = eos %) 0.5 % 0.0-5.4 Basophils/100 leukocytes in 0.2 % 0.1-1.2 Unspecified specimen (test code = 12052-6) Band form neutrophils [#/volume] 9.48 K/uL 1.56-6.13 H in Blood (test code = 21592-8) Lymphocytes [#/volume] in 2.3 K/uL 1.18-3.74 Unspecified specimen by Automated count (test code = 03582-0) mono # (test code = mono #) 0.90 K/uL 0.24-0.86 H eos # (test code = eos #) 0.06 K/uL 0.04-0.36 basophil # (test code = basophil 0.02 K/uL 0.01-0.08 #) NRBC% (test code = NRBC%) 0 /100 WBC 0-0.2 NRBC# (test code = NRBC#) 0 [facility] - Blood 2020-03-27 08:18:00 Test Item Value Reference Range Interpretation Comments Rh [Type] in Blood (test code = 4+ 28626-1) ABO and Rh group panel - Blood A positive (test code = 77556-2) [facility] [Presence] in [id number] 08:18:00HIV P24 AgHIV-1/2 [facility]Re[facility] [Presence] in Serum by RPR 2020-03-27 08:18:00 Test Item Value Reference Range Interpretation Comments Reagin Ab [Presence] in Serum by nonreactive nonreactive RPR (test code = 52518-0) [facility]Rub[facility] IgM Ab [Units/volume] in [id number] 08:18:00 Test Item Value Reference Range Interpretation Comments Rubella virus IgM Ab [Units/volume] in <20.0 0.0-19.9 Serum (test code = 8015-0) [facility]Hepatitis [facility] virus surface Ag [Presence] in Serum 2020-03-27 08:18:00 Test Item Value Reference Range Interpretation Comments .hepatitis B surface antigen (test negative negative code = .hepatitis B surface antigen) [facility]Com[facility] 2000 panel - Serum or Plasma 2020-03-27 08:18:00 Test Item Value Reference Range Interpretation Comments Glucose [Mass/volume] in Serum or 124 mg/dL 74-106 H Plasma (test code = 2345-7) Urea nitrogen [Mass/volume] in 10 mg/dL 6-20 Serum or Plasma (test code = 3094-0) osmolality calculated,serum (test 271 mOsm/kg 280-300 L code = osmolality calculated,serum) creatinine (test code = 0.7 mg/dL 0.50-0.90 creatinine) glomerular filtration rate (test >60.00 code = glomerular filtration rate) Urea nitrogen/Creatinine [Mass 14.3 12-20 Ratio] in Serum or Plasma (test code = 3097-3) sodium level (test code = sodium 135 mmol/L 135-145 level) potassium level (test code = 3.3 mmol/L 3.5-5.2 L potassium level) chloride level (test code = 104 mmol/L 98-108 chloride level) CO2 (test code = CO2) 18 mmol/L 21-32 L anion gap (test code = anion gap) 16.3 mEq/L 12-20 calcium level (test code = 8.9 mg/dL 8.6-10.0 calcium level) total protein (test code = total 6.6 g/dL 6.6-8.7 protein) albumin (test code = albumin) 3.3 g/dL 3.5-5.2 L globulin (test code = globulin) 3.3 gm/dL A/G ratio (test code = A/G ratio) 1.0 >1.0 bilirubin,total (test code = <0.3 0.0-1.2 bilirubin,total) AST/SGOT (test code = AST/SGOT) 12 U/L 15-32 L Alanine aminotransferase 13 U/L 0-33 [Enzymatic activity/volume] in Serum or Plasma (test code = 1742-6) Alkaline phosphatase [Enzymatic 91 U/L 35-105 activity/volume] in Serum or Plasma (test code = 6768-6) [facility] HospitalUrate [Mass/volume] in [id number] 08:18:00 Test Item Value Reference Range Interpretation Comments uric acid (test code = uric acid) 4.4 mg/dL 2.4-5.7 [facility]-Lactate [Moles/volume] in Serum or [id number] 08:18:00 Test Item Value Reference Range Interpretation Comments LDH (test code = LDH) 148 U/L 135-214 [facility] W Auto Differential panel - [id number] 08:18:00 Test Item Value Reference Range Interpretation Comments white blood count (test code = 12.9 K/uL 4.0-11.5 H white blood count) red blood count (test code = red 4.10 M/uL 3.80-5.20 blood count) hemoglobin (test code = 11.6 g/dL 10.5-15.7 hemoglobin) hematocrit (test code = 35.1 % 34.0-50.0 hematocrit) MCV [Entitic volume] (test code = 85.6 fL 86-100 L 69969-1) mean corpuscular hemoglobin (test 28.3 pg 26.2-33.4 code = mean corpuscular hemoglobin) mean corpuscular HGB conc (test 33.0 g/dL 30-34 code = mean corpuscular HGB conc) red cell distribution width (test 12.3 % 12.0-15.5 code = red cell distribution width) platelet count (test code = 272 K/uL 165-450 platelet count) mean platelet volume (test code = 9.3 fL 9.4-12.6 L mean platelet volume) Segmented neutrophils/100 73.6 % 44.4-80.1 leukocytes in Blood (test code = 17093-8) Immature granulocytes [#/volume] 0.1 K/uL 0.0-0.03 H in Blood (test code = 42570-7) lymphocyte% (test code = 18.0 % 10.0-50.0 lymphocyte%) mono % (test code = mono %) 7.0 % 3.6-12.0 eos % (test code = eos %) 0.5 % 0.0-5.4 Basophils/100 leukocytes in 0.2 % 0.1-1.2 Unspecified specimen (test code = 76565-0) Band form neutrophils [#/volume] 9.48 K/uL 1.56-6.13 H in Blood (test code = 30581-4) Lymphocytes [#/volume] in 2.3 K/uL 1.18-3.74 Unspecified specimen by Automated count (test code = 81887-7) mono # (test code = mono #) 0.90 K/uL 0.24-0.86 H eos # (test code = eos #) 0.06 K/uL 0.04-0.36 basophil # (test code = basophil 0.02 K/uL 0.01-0.08 #) NRBC% (test code = NRBC%) 0 /100 WBC 0-0.2 NRBC# (test code = NRBC#) 0 K/uL [facility] Indirect antibody screen panel - Blood 2020-03-27 08:18:00 Test Item Value Reference Range Interpretation Comments Rh [Type] in Blood (test code = 4+ 83587-3) ABO and Rh group panel - Blood A positive (test code = 17015-9) [facility]HIV [facility] [Presence] in [id number] 08:18:00HIV P24 AgHIV-1/2 AbMataReg[facility] MeridianReagin Ab [Presence] in Serum by RPR 2020-03-27 08:18:00 Test Item Value Reference Range Interpretation Comments Reagin Ab [Presence] in Serum by nonreactive nonreactive RPR (test code = 33446-4) [facility] HospitalRubella virus IgM Ab [Units/volume] in [id number] 08:18:00 Test Item Value Reference Range Interpretation Comments Rubella virus IgM Ab [Units/volume] in <20.0 0.0-19.9 Serum (test code = 8015-0) [facility] HospitalHepatitis B virus surface Ag [Presence] in Serum 2020-03-27 08:18:00 Test Item Value Reference Range Interpretation Comments .hepatitis B surface antigen (test negative negative code = .hepatitis B surface antigen) [facility]Com[facility] 2000 panel - Serum or Plasma 2020-03-27 08:18:00 Test Item Value Reference Range Interpretation Comments Glucose [Mass/volume] in Serum or 124 mg/dL 74-106 H Plasma (test code = 2345-7) Urea nitrogen [Mass/volume] in 10 mg/dL 6-20 Serum or Plasma (test code = 3094-0) osmolality calculated,serum (test 271 mOsm/kg 280-300 L code = osmolality calculated,serum) creatinine (test code = 0.7 mg/dL 0.50-0.90 creatinine) glomerular filtration rate (test >60.00 code = glomerular filtration rate) Urea nitrogen/Creatinine [Mass 14.3 12-20 Ratio] in Serum or Plasma (test code = 3097-3) sodium level (test code = sodium 135 mmol/L 135-145 level) potassium level (test code = 3.3 mmol/L 3.5-5.2 L potassium level) chloride level (test code = 104 mmol/L 98-108 chloride level) CO2 (test code = CO2) 18 mmol/L 21-32 L anion gap (test code = anion gap) 16.3 mEq/L 12-20 calcium level (test code = 8.9 mg/dL 8.6-10.0 calcium level) total protein (test code = total 6.6 g/dL 6.6-8.7 protein) albumin (test code = albumin) 3.3 g/dL 3.5-5.2 L globulin (test code = globulin) 3.3 gm/dL A/G ratio (test code = A/G ratio) 1.0 >1.0 bilirubin,total (test code = <0.3 0.0-1.2 bilirubin,total) AST/SGOT (test code = AST/SGOT) 12 U/L 15-32 L Alanine aminotransferase 13 U/L 0-33 [Enzymatic activity/volume] in Serum or Plasma (test code = 1742-6) Alkaline phosphatase [Enzymatic 91 U/L 35-105 activity/volume] in Serum or Plasma (test code = 6768-6) [facility] HospitalUrate [Mass/volume] in [id number] 08:18:00 Test Item Value Reference Range Interpretation Comments uric acid (test code = uric acid) 4.4 mg/dL 2.4-5.7 [facility]-Lactate [Moles/volume] in Serum or [id number] 08:18:00 Test Item Value Reference Range Interpretation Comments LDH (test code = LDH) 148 U/L 135-214 [facility] W Auto Differential panel - [id number] 08:18:00 Test Item Value Reference Range Interpretation Comments white blood count (test code = 12.9 K/uL 4.0-11.5 H white blood count) red blood count (test code = red 4.10 M/uL 3.80-5.20 blood count) hemoglobin (test code = 11.6 g/dL 10.5-15.7 hemoglobin) hematocrit (test code = 35.1 % 34.0-50.0 hematocrit) MCV [Entitic volume] (test code = 85.6 fL 86-100 L 50468-7) mean corpuscular hemoglobin (test 28.3 pg 26.2-33.4 code = mean corpuscular hemoglobin) mean corpuscular HGB conc (test 33.0 g/dL 30-34 code = mean corpuscular HGB conc) red cell distribution width (test 12.3 % 12.0-15.5 code = red cell distribution width) platelet count (test code = 272 K/uL 165-450 platelet count) mean platelet volume (test code = 9.3 fL 9.4-12.6 L mean platelet volume) Segmented neutrophils/100 73.6 % 44.4-80.1 leukocytes in Blood (test code = 47488-3) Immature granulocytes [#/volume] 0.1 K/uL 0.0-0.03 H in Blood (test code = 15106-1) lymphocyte% (test code = 18.0 % 10.0-50.0 lymphocyte%) mono % (test code = mono %) 7.0 % 3.6-12.0 eos % (test code = eos %) 0.5 % 0.0-5.4 Basophils/100 leukocytes in 0.2 % 0.1-1.2 Unspecified specimen (test code = 83278-4) Band form neutrophils [#/volume] 9.48 K/uL 1.56-6.13 H in Blood (test code = 02179-2) Lymphocytes [#/volume] in 2.3 K/uL 1.18-3.74 Unspecified specimen by Automated count (test code = 42530-1) mono # (test code = mono #) 0.90 K/uL 0.24-0.86 H eos # (test code = eos #) 0.06 K/uL 0.04-0.36 basophil # (test code = basophil 0.02 K/uL 0.01-0.08 #) NRBC% (test code = NRBC%) 0 /100 WBC 0-0.2 NRBC# (test code = NRBC#) 0 K/uL [facility]Blood [facility] and Indirect antibody screen panel - Blood 2020-03-27 08:18:00 Test Item Value Reference Range Interpretation Comments Rh [Type] in Blood (test code = 4+ 29921-5) ABO and Rh group panel - Blood A positive (test code = 91642-8) [facility] hours panel - Serum or Plasma 2020-03-26 13:17:00 Test Item Value Reference Range Interpretation Comments Results (test code = Results) Passed [facility]Gl[facility] tolerance [facility] hours panel - Serum or Plasma 2020-03-26 13:17:00 Test Item Value Reference Range Interpretation Comments Results (test code = Results) Passed [facility] hours panel - Serum or Plasma 2020-03-26 13:17:00 Test Item Value Reference Range Interpretation Comments Results (test code = Results) Passed [facility]Gl[facility] tolerance [facility] hours panel - Serum or Plasma 2020-03-26 13:17:00 Test Item Value Reference Range Interpretation Comments Results (test code = Results) [facility]ed [facility] hours panel - Serum or Plasma 2020-03-26 13:17:00 Test Item Value Reference Range Interpretation Comments Results (test code = Results) Passed [facility] Biophysical profile panel [id number] 09:36:47 Test Item Value Reference Range Interpretation Comments Amniotic Fluid Index (test code = 2 (17.1) Amniotic Fluid Index) Tone (test code = Tone) 2 Breathing (test code = 2 Breathing) Movement (test code = 2 Movement) [facility] Biophysical profile panel [id number] 09:36:47 Test Item Value Reference Range Interpretation Comments Amniotic Fluid Index (test code = 2 (17.1) Amniotic Fluid Index) Tone (test code = Tone) 2 Breathing (test code = 2 Breathing) Movement (test code = 2 Movement) [facility] Biophysical profile panel [id number] 09:36:47 Test Item Value Reference Range Interpretation Comments Amniotic Fluid Index (test code = 2 (17.1) Amniotic Fluid Index) Tone (test code = Tone) 2 Breathing (test code = 2 Breathing) Movement (test code = 2 Movement) [facility] Biophysical profile panel [id number] 09:36:47 Test Item Value Reference Range Interpretation Comments Amniotic Fluid Index (test code = 2 (17.1) Amniotic Fluid Index) Tone (test code = Tone) 2 Breathing (test code = 2 Breathing) Movement (test code = 2 Movement) [facility] [id number] 09:36:47 Test Item Value Reference Range Interpretation Comments Amniotic Fluid Index (test code = 2 (17.1) Amniotic Fluid Index) Tone (test code = Tone) 2 Breathing (test code = 2 Breathing) Movement (test code = 2 Movement) [facility] HospitalUrinalysis macro (dipstick) panel - [id number] 09:12:00 Test Item Value Reference Range Interpretation Comments Leukocytes (test code = Leukocytes) Negative Nitrite (test code = Nitrite) negative Urobilinogen (test code = .2 Urobilinogen) Protein (test code = Protein) 100 pH (test code = pH) 7.0 Blood (test code = Blood) Negative Specific [place] (test code = 1.020 Specific [place]) Ketone (test code = Ketone) Negative Bilirubin (test code = Bilirubin) Negative Glucose (test code = Glucose) Negative Appearance (test code = Appearance) Clear Color (test code = Color) Yellow [facility]Urinal[facility] macro (dipstick) panel - [id number] 09:12:00 Test Item Value Reference Range Interpretation Comments Leukocytes (test code = Leukocytes) Negative Nitrite (test code = Nitrite) negative Urobilinogen (test code = .2 Urobilinogen) Protein (test code = Protein) 100 pH (test code = pH) 7.0 Blood (test code = Blood) Negative Specific [place] (test code = 1.020 Specific [place]) Ketone (test code = Ketone) Negative Bilirubin (test code = Bilirubin) Negative Glucose (test code = Glucose) Negative Appearance (test code = Appearance) Clear Color (test code = Color) Yellow [facility]Urinal[facility] macro (dipstick) panel - [id number] 09:12:00 Test Item Value Reference Range Interpretation Comments Leukocytes (test code = Leukocytes) Negative Nitrite (test code = Nitrite) negative Urobilinogen (test code = .2 Urobilinogen) Protein (test code = Protein) 100 pH (test code = pH) 7.0 Blood (test code = Blood) Negative Specific [place] (test code = 1.020 Specific [place]) Ketone (test code = Ketone) Negative Bilirubin (test code = Bilirubin) Negative Glucose (test code = Glucose) Negative Appearance (test code = Appearance) Clear Color (test code = Color) Yellow [facility] macro (dipstick) panel - [id number] 09:12:00 Test Item Value Reference Range Interpretation Comments Leukocytes (test code = Leukocytes) Negative Nitrite (test code = Nitrite) negative Urobilinogen (test code = .2 Urobilinogen) Protein (test code = Protein) 100 pH (test code = pH) 7.0 Blood (test code = Blood) Negative Specific [place] (test code = 1.020 Specific [place]) Ketone (test code = Ketone) Negative Bilirubin (test code = Bilirubin) Negative Glucose (test code = Glucose) Negative Appearance (test code = Appearance) Clear Color (test code = Color) [facility] - [id number] 09:12:00 Test Item Value Reference Range Interpretation Comments Leukocytes (test code = Leukocytes) Negative Nitrite (test code = Nitrite) negative Urobilinogen (test code = .2 Urobilinogen) Protein (test code = Protein) 100 pH (test code = pH) 7.0 Blood (test code = Blood) Negative Specific [place] (test code = 1.020 Specific [place]) Ketone (test code = Ketone) Negative Bilirubin (test code = Bilirubin) Negative Glucose (test code = Glucose) Negative Appearance (test code = Appearance) Clear Color (test code = Color) [facility]
--- NOTE | 2021-01-09 21:29 | ER ---
Nurse's Notes [facility] Name: Rosi Peters Age: 25 yrs Sex: Female : 1995 Arrival Date: 01/09/2021 Time: 17:44 Bed External Waiting Private MD: Diagnosis: Presentation: 01/09 17:56 Chief complaint: Patient states: "I think I just got sick off of one of my kids i jd3 think. I have just had a cough and a stuffy nose.". Coronavirus screen: headache, runny nose, Client presents with at least one sign or symptom that may indicate coronavirus-19. Standard/surgical mask placed on the client. Provider contacted for isolation considerations. Ebola Screen: Patient negative for fever greater than or equal to 101.5 degrees Fahrenheit, and additional compatible Ebola Virus Disease symptoms. Initial Sepsis Screen: Does the patient meet any 2 criteria? No. Patient's initial sepsis screen is negative. Does the patient have a suspected source of infection? No. Patient's initial sepsis screen is negative. Risk Assessment: Do you want to hurt yourself or someone else? Patient reports no desire to harm self or others. Onset of symptoms was January 07, 2021. 17:56 Method Of Arrival: Ambulatory [facility] 17:56 Acuity: BARNEY 3 j 17:57 Note Tylenol taken prior to 1200 today. 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 - Social history:: Smoking status: Patient reports the use of cigarette tobacco products, smokes one-half pack cigarettes per day. Vital Signs: 17:58 BP 203 / 160; Pulse 103; Resp 17 S; Temp 97.5(TE); Pulse Ox 99% on R/A; Weight 99.79 kg jd3 (R); Height 5 ft. 6 in. (167.64 cm) (R); Pain 2/10; 17:58 Body Mass Index 35.51 (99.79 kg, 167.64 cm) [facility] ED Course: 17:44 Patient arrived in ED. mr 17:57 Triage completed. jd3 17:59 Arm band placed on. jd3 19:32 Rustam Raines, RN is Primary Nurse. em 19:36 Allen Gillis MD is Attending Physician. 7 Administered Medications: No medications were administered Outcome: 21:28 Patient left the ED. em Signatures: Uli Shaina mr Rustam Raines RN RN em Femi Dawkins RN RN jAllen Méndez MD MD 7 Corrections: (The following items were deleted from the chart) 17:59 17:56 Acuity: BARNEY 4 jd3 j
[2021-01-09 21:39] VITALS: BP 203/160; TEMP 97.5; O2SAT 99
== END 2021-01-09 21:28 | disposition left against medical advice (07) ==
LOC: ER 17:33
DX: Z02.9 Encounter for administrative examinations, unspecified (principal)
CPT/HCPCS: 99281